=== PATIENT | female | born 1970 | race Caucasian/White ===

== ENCOUNTER 2017-05-19 12:29 | Emergency (ER) | payer BC ==
[~2017-05-19] VITALS: Ht 154.9 cm; Wt 58.2 kg
[~2017-05-19 12:29] MED LIST: ELET40TA PO; NAPR500T4 PO
[2017-05-19] MEDS ORDERED: DIPHENHYDRAMINE 50 MG/ML, 1ML ONE (12:56)
[2017-05-19] MEDS ORDERED: KETOROLAC 30 MG/1 ML ONE (12:56)
[2017-05-19] MEDS ORDERED: METOCLOPRAMIDE 5 MG/ML, 2ML ONE (12:56)
[2017-05-19] MEDS ORDERED: METOCLOPRAMIDE 5 MG/ML, 2ML IVPush ONE (13:00)
[2017-05-19] MEDS ORDERED: DIPHENHYDRAMINE 50 MG/ML, 1ML IVPush ONE (13:00)
[2017-05-19] MEDS ORDERED: SODIUM CHLORIDE 0.9% 1,000ML IVBOLUS ONE (13:00)
[2017-05-19] MEDS ORDERED: SODIUM CHLORIDE FLUSH 10ML SYR IVF ONE (13:00)
[2017-05-19] MEDS ORDERED: KETOROLAC 30 MG/1 ML IVPush ONE (13:00)
[2017-05-19 15:16] VITALS: BP 105/56
== END 2017-05-19 16:08 | disposition home or self-care (01) ==
LOC: ED 14:36
DX: G43.009 Migraine without aura, not intractable, without status migrainosus (principal)
CPT/HCPCS: 96361; 96374; 96375; 99285; J1200; J1885; J2765; J7030